=== PATIENT | female | born 1985 | race Caucasian/White ===

== ENCOUNTER 2017-06-24 19:11 | Emergency (ER) | payer OTHER ==
[2017-06-24] MEDS ORDERED: Acetaminophen 500 MG TAB ONE (22:07)
[2017-06-24] MEDS ORDERED: Acetaminophen 500 MG TAB PO ONE (22:13)
[2017-06-24 22:57] LABS: % BASOPHILS 0.7 % (0.0-2.0); % EOSINOPHILS 1.7 % (0.0-5.0); % LYMPHOCYTES 40.1 % (20.0-50.0); % MONOCYTES 6.6 % (2.0-10.0); % NEUTROPHILS 50.9 % (40.0-80.0); HEMATOCRIT 36.1 % (41.0-60); HEMOGLOBIN 11.7 gm/dL (12-16); MEAN CELL VOLUME 71.2 fl (81-100); MEAN CORPUSCULAR HEMOGLOBIN 23.2 pg (27.0-31.0); MEAN CORPUSCULAR HGB CONC 32.5 pg (28.0-36.0); PLATELET COUNT 368 Th/cmm (150-400); RED BLOOD COUNT 5.06 Mil/cmm (3.80-5.10); RED CELL DISTRIBUTION WIDTH 13.7 % (11.5-20.0); WHITE BLOOD COUNT 10.1 Th/cmm (4.8-10.8)
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
--- NOTE | 2017-06-25 09:10 | Diagnostic Imaging Report ---
Portable chest x-ray HISTORY: Pain, trauma There is a poor inspiration. Heart size difficult to assess. No focal pulmonary processes. No hilar or mediastinal abnormalities. IMPRESSION: 1. No definite acute abnormalities
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
== END 2017-06-25 00:35 | disposition home or self-care (01) ==
LOC: ER 19:11
DX: S19.9XXA Unspecified injury of neck, initial encounter (principal); S09.92XA Unspecified injury of nose, initial encounter; R51 Headache; V89.2XXA Person injured in unspecified motor-vehicle accident, traffic, initial encounter; Y93.89 Activity, other specified; Y92.89 Other specified places as the place of occurrence of the external cause; Y99.8 Other external cause status
CPT/HCPCS: 99291; 96372; 93005; 71010; 72040; 36415; 85025; 83735; J1885; Z7502; Z7610